=== PATIENT | male | born 1990 ===

== ENCOUNTER 2018-11-26 20:17 | Emergency (ER) | payer OTHER ==
--- NOTE | 2018-11-26 20:37 | ER Report ---
History and Physical Time Seen By MD: 20:37 Hx. of Stated Complaint: worst headache ever HPI/ROS CHIEF COMPLAINT: Severe headache HISTORY OF PRESENT ILLNESS: This is a 19-year-old male. Yesterday, Thursday morning, at about 0300 hours he had onset suddenly of a severe headache, worst headache he's ever had. He does not typically get headaches. He took some Aleve. He had a normal day had a beer while watching a movie that night and then decided to go to sleep to see if this would help. He woke up with a headache. He also found that he was not able to walk straight having severe disequilibrium. He denies any vertigo. No recent illnesses. He denies having any shortness of breath, cough, sore throat or runny nose. He has had nausea and vomiting all day today unable to keep any fluids down so feels dehydrated. Family decided that he should come in to get things checked out. He denies any vision changes other than the photophobia due to light. He denies any chest pain or palpitations. No abdominal pain. No recent changes in bowel or bladder function other than a little dehydrated. Denies any diffuse joint sore muscle pains. No rashes. No difficulty with speech or swallowing noted. The patient denies any drug use. He did have one beer last night but no further alcohol use since then. Allergies: Coded Allergies: No Known Allergies (Verified Allergy, Unknown, 11/26/18) Home Meds No Active Prescriptions or Reported Meds Reviewed Nurses Notes: Yes Hx Substance Use Disorder: No Hx Alcohol Use: No Constitutional Vital Sign - Last 24 Hours 11/26/18 11/26/18 11/26/18 11/26/18 20:17 20:25 20:30 20:31 Temp 97.5 Pulse 51 53 Resp 14 12 B/P (MAP) 122/81 (95) 118/92 (101) 118/92 Pulse Ox 97 94 O2 Delivery Room Air 11/26/18 11/26/18 11/26/18 11/26/18 20:47 21:00 21:17 21:22 Pulse 53 52 60 Resp 16 23 25 B/P (MAP) 95/41 (59) Pulse Ox 97 95 97 11/26/18 11/26/18 11/26/18 11/26/18 21:30 21:35 21:50 22:01 Pulse 56 53 Resp 15 31 B/P (MAP) 108/70 (83) 103/69 (80) Pulse Ox 97 96 11/26/18 11/26/18 11/26/18 11/26/18 22:05 22:20 22:30 22:35 Pulse 53 ? Resp 12 B/P (MAP) ???/??? (1665) Pulse Ox 93 11/26/18 11/26/18 11/26/18 11/26/18 22:50 23:00 23:05 23:20 Pulse ??? 73 51 Resp 9 27 B/P (MAP) ???/??? (1665) Pulse Ox 95 93 11/26/18 11/26/18 11/26/18 11/26/18 23:25 23:30 23:40 23:55 Pulse 51 58 66 Resp 18 B/P (MAP) ???/??? (1665) Pulse Ox 97 94 96 11/27/18 11/27/18 11/27/18 11/27/18 00:00 00:10 00:19 00:25 Pulse ? B/P (MAP) ???/??? (1665) 121/77 (92) Pulse Ox 95 99 11/27/18 11/27/18 11/27/18 11/27/18 00:30 00:40 00:55 01:00 Pulse 55 59 Resp 54 B/P (MAP) 120/83 (95) 119/81 (94) Pulse Ox 98 97 11/27/18 01:10 Pulse 58 Pulse Ox 97 Physical Exam General Appearance: The patient is alert. No acute distress. Eyes: Pupils are equal, round. Reactive to light. No pallor, injection or icterus. Extraocular movements are intact. No nystagmus. Negative head impulse testing. ENT: Mucous membranes are moist. Normal oral mucosa. Posterior oropharynx is normal. No pain with palpating around the skull in the facial bones or mastoids or scientology area. Neck: Supple and non tender. Respiratory: Lungs are clear to auscultation. Cardiovascular: Regular rate and rhythm. No murmurs, gallops or rubs. Normal capillary refill. Gastrointestinal: Abdomen is soft and non tender. Nondistended. Normal active bowel sounds. Neurological: Alert and oriented x3. Cranial nerve exam with eye exam as noted above. Normal facial sensation without facial droop. Midline tongue, symmetric palate elevation. Normal shoulder shrug. Normal strength in the extremities both upper and lower with normal sensation. Normal heel to grant and finger to nose testing. Headache worsens with change in position. Also severe inability to stand or walk straight. Negative Kernig's and Brudzinski's signs. [place] does reproduce a little bit of the dizzy sensation to the left side but there is no nystagmus and not classic. Skin: Warm and dry. No rashes. Musculoskeletal: Extremities are nontender. Full range of motion. No tenderness in palpation of the neck, back and spine. DIFFERENTIAL DIAGNOSIS: After history and physical exam, differential diagnosis was considered for a patient with severe onset of headache who also is having some disequilibrium. No history of headaches so migraine headache or atypical version would be unlikely. Would most likely think this would be a viral syndrome but absence of other symptoms are suspicious. Would be less likely to be a stroke but need to rule this out. Would also consider other neurodegenerative problems. Medical Decision Making Data Points Result Diagram: 11/26/18211011/26/182110 Laboratory Hematology Test 11/26/18 21:11 11/26/18 21:12 Red Blood Count 5.48 M/uL (4.00-5.60) Mean Corpuscular Volume 89.2 fL (80.0-96.0) Mean Corpuscular Hemoglobin 29.8 pg (26.0-33.0) Mean Corpuscular Hemoglobin Concent 33.4 g/dL (32.0-36.0) Red Cell Distribution Width 13.3 % (11.5-14.5) Mean Platelet Volume 9.2 fL (7.2-11.1) Neutrophils (%) (Auto) 79.7 % (39.4-72.5) Lymphocytes (%) (Auto) 12.8 % (17.6-49.6) Monocytes (%) (Auto) 6.5 % (4.1-12.4) Eosinophils (%) (Auto) 0.3 % (0.4-6.7) Basophils (%) (Auto) 0.7 % (0.3-1.4) Nucleated RBC Relative Count (auto) 0.1 /100WBC Neutrophils # (Auto) 8.8 K/uL (2.0-7.4) Lymphocytes # (Auto) 1.4 K/uL (1.3-3.6) Monocytes # (Auto) 0.7 K/uL (0.3-1.0) Eosinophils # (Auto) 0.0 K/uL (0.0-0.5) Basophils # (Auto) 0.1 K/uL (0.0-0.1) Nucleated RBC Absolute Count (auto) 0.01 K/uL Prothrombin Time 13.2 seconds (12.0-14.4) Prothromb Time International Ratio 1.00 Activated Partial Thromboplast Time 24 seconds (23-35) Sodium Level 139 mmol/L (137-145) Potassium Level 4.0 mmol/L (3.5-5.0) Chloride Level 104 mmol/L (98-107) Carbon Dioxide Level 24 mmol/L (22-30) Blood Urea Nitrogen 9 mg/dl (9-21) Creatinine 1.00 mg/dl (0.66-1.25) Glomerular Filtration Rate Calc > 60.0 Random Glucose 102 mg/dl (75-110) Calcium Level 10.3 mg/dl (8.4-10.2) Total Bilirubin 0.7 mg/dl (0.2-1.3) Aspartate Amino Transf (AST/SGOT) 21 U/L (0-35) Alanine Aminotransferase (ALT/SGPT) 30 U/L (0-56) Alkaline Phosphatase 83 U/L (0-126) Total Protein 7.1 g/dl (6.3-8.2) Albumin 4.6 g/dl (3.5-5.0) Influenza Virus Type A (PCR) Negative (NEGATIVE) Influenza Virus Type B (PCR) Negative (NEGATIVE) Chemistry Test 11/26/18 21:11 11/26/18 21:12 White Blood Count 11.1 k/uL (4.5-11.0) Red Blood Count 5.48 M/uL (4.00-5.60) Hemoglobin 16.3 g/dL (14.0-18.0) Hematocrit 48.9 % (42.0-52.0) Mean Corpuscular Volume 89.2 fL (80.0-96.0) Mean Corpuscular Hemoglobin 29.8 pg (26.0-33.0) Mean Corpuscular Hemoglobin Concent 33.4 g/dL (32.0-36.0) Red Cell Distribution Width 13.3 % (11.5-14.5) Platelet Count 196 K/uL (150-450) Mean Platelet Volume 9.2 fL (7.2-11.1) Neutrophils (%) (Auto) 79.7 % (39.4-72.5) Lymphocytes (%) (Auto) 12.8 % (17.6-49.6) Monocytes (%) (Auto) 6.5 % (4.1-12.4) Eosinophils (%) (Auto) 0.3 % (0.4-6.7) Basophils (%) (Auto) 0.7 % (0.3-1.4) Nucleated RBC Relative Count (auto) 0.1 /100WBC Neutrophils # (Auto) 8.8 K/uL (2.0-7.4) Lymphocytes # (Auto) 1.4 K/uL (1.3-3.6) Monocytes # (Auto) 0.7 K/uL (0.3-1.0) Eosinophils # (Auto) 0.0 K/uL (0.0-0.5) Basophils # (Auto) 0.1 K/uL (0.0-0.1) Nucleated RBC Absolute Count (auto) 0.01 K/uL Prothrombin Time 13.2 seconds (12.0-14.4) Prothromb Time International Ratio 1.00 Activated Partial Thromboplast Time 24 seconds (23-35) Glomerular Filtration Rate Calc > 60.0 Calcium Level 10.3 mg/dl (8.4-10.2) Total Bilirubin 0.7 mg/dl (0.2-1.3) Aspartate Amino Transf (AST/SGOT) 21 U/L (0-35) Alanine Aminotransferase (ALT/SGPT) 30 U/L (0-56) Alkaline Phosphatase 83 U/L (0-126) Total Protein 7.1 g/dl (6.3-8.2) Albumin 4.6 g/dl (3.5-5.0) Influenza Virus Type A (PCR) Negative (NEGATIVE) Influenza Virus Type B (PCR) Negative (NEGATIVE) Coagulation Test 11/26/18 21:11 Prothrombin Time 13.2 seconds Prothromb Time International Ratio 1.00 Activated Partial Thromboplast Time 24 seconds EKG/Imaging EKG Interpretation 12 lead EKG: Rhythm: Sinus bradycardia, rate 50 [place]: normal QRS: normal ST segments: normal Imaging EXAMINATION: MRI brain without IV contrast MRI brain with IV contrast HISTORY: Dizziness, headache. COMPARISON: None. TECHNIQUE: Multi-planar, multi-sequence brain MRI was performed before and af ter IV gadolinium. CONTRAST: 15 mL of IV MultiHance gadolinium. FINDINGS: Brain volume: Normal. Sagittal midline structures: Normal. Ventricles: Normal. Acute ischemic changes: There is patchy diffusion restriction with corresponding decreased ADC map signal and T2/FLAIR hyperintensity in the left inferior cerebellum. There are a few areas of T2 shine through in the deep white matter of the left frontal and parietal lobe. Hemorrhage: No acute hemorrhage or hemosiderin staining. Masses/edema: None. Enhancement: There is no abnormal intracranial enhancement. [place]-white: Negative. White matter: There are several T2/FLAIR hyperintense lesions in the deep white matter bilaterally, oriented perpendicular to the lateral ventricular surface. The callososeptal interface is mildly irregular in appearance. Vessels: There is mildly increased T2 signal in the left vertebral artery. Extra-axial: None. Calvarium/scalp: Negative. Skull base: Negative. Visualized sinuses/orbits: Negative. Visualized upper neck: Negative. IMPRESSION: 1. Acute, patchy infarct in the left cerebellum, over 6 hours in age. No associated hemorrhage or mass effect. 2. Abnormal signal in the left vertebral artery could be due to slow flow or occlusion, and may indicate a dissection lower in the neck. MRA or CTA of the neck could be considered for further evaluation. 3. Several nonenhancing white matter lesions with morphology and distribution highly suspicious for multiple sclerosis plaques. Other inflammatory process or sequela of vasculitis is considered less likely. 4. No intracranial mass lesion. These findings were discussed with VU NINO at 11/26/2018 11:31 PM. Report Dictated By: Chana Hamilton MD at 11/26/2018 11:23 PM ED Course/Re-evaluation Clinical Indication for ER IV: Hydration, IV Access ED Course After initial blood work, the patient went to MRI. He had a liter of fluid and some Zofran for nausea. MRI was with and without contrast and did show signs of multiple white matter lesions consistent with likely neurodegenerative disease, these were nonenhancing. Cerebellum infarct estimated greater than 6 hours old. Question of problem with the left vertebral artery as well, recommendation for further imaging of the vascular structures. I called and spoke with neurology, Dr. Romo, at [facility]. After this talked with Dr. Mack, the hospitalist who accepted the patient for transfer. Decision to Disposition Date: Nov 27, 2018 Decision to Disposition Time: 00:04 Transfer Facility Patient was transferred to [facility] via ambulance. The transfer was non-emergent, and was required because the capabilities of the receiving hospital. Consent for transfer was obtained from the patient. See EMTALA for transfer orders. Depart Departure Latest Vital Signs Vital Signs Date Time Temp Pulse Resp B/P (MAP) Pulse Ox O2 Delivery O2 Flow Rate FiO2 11/27/18 01:10 58 97 11/27/18 01:00 119/81 (94) 11/27/18 00:40 54 11/26/18 20:31 97.5 Room Air Impression: Primary Impression: Cerebellar stroke, acute Condition: Condition Unchanged Disposition: XFER TO [facility] New Scripts No Active Prescriptions or Reported Meds VU NINO MD Nov 26, 2018 20:37
--- NOTE | 2018-11-26 21:06 | EKG ---
FACILITY: [facility] PATIENT NAME: DAVID ESPINOZA : [id number] MR: [id number] V: [id number] EXAM DATE: ORDERING PHYSICIAN: VU NINO TECHNOLOGIST: TRAV Test Reason : NEURO/ dizziness Blood Pressure : / mmHG Vent. Rate : 050 BPM Atrial Rate : 050 BPM P-R Int : 166 ms QRS Dur : 104 ms QT Int : 428 ms P-R-T Axes : 084 084 066 degrees QTc Int : 390 ms Sinus bradycardia with sinus arrhythmia Poor R wave progression anteriorly Nonspecific interventricular conduction delay Possible delta wave seen in II, III, AVF No previous ECGs available Confirmed by JIN LILLY ([id number]) on 11/26/2018 9:15:28 PM Referred By: Confirmed By:JIN LILLY
[2018-11-26 21:25] LABS: PLATELET COUNT, AUTOMATED 196 K/uL (150-450)
[2018-11-26] MEDS ORDERED: NS(*) 0.9% 1000 ML BAG 1,000 ML IV ONE (21:55)
[2018-11-26] MEDS ORDERED: ONDANSETRON 4 MG/2 ML VIAL IVP ONE (21:55)
[2018-11-26] MEDS ORDERED: GADOBENATE 529MG/1ML 15ML VIAL IVP ONE (22:16)
[2018-11-26] MEDS ORDERED: MORPHINE 4 MG/ML SDV IVP ONE (23:30)
--- NOTE | 2018-11-26 23:39 | RADIOLOGY IMAGING REPORT ---
[place] [facility] [place] NAME: Aditi Ham : 1990 MR: [id number] V: [id number] EXAM DATE: ORDERING PHYSICIAN: VU NINO TECHNOLOGIST: [place] [facility] [place] : 1990 Visit/Account:[id number] Date of Sevice: 11/26/2018 EXAMINATION: MRI brain without IV contrast MRI brain with IV contrast HISTORY: Dizziness, headache. COMPARISON: None. TECHNIQUE: Multi-planar, multi-sequence brain MRI was performed before and after IV gadolinium. CONTRAST: 15 mL of IV MultiHance gadolinium. FINDINGS: Brain volume: Normal. Sagittal midline structures: Normal. Ventricles: Normal. Acute ischemic changes: There is patchy diffusion restriction with corresponding decreased ADC map s ignal and T2/FLAIR hyperintensity in the left inferior cerebellum. There are a few areas of T2 shine through in the deep white matter of the left frontal and parietal lobe. Hemorrhage: No acute hemorrhage or hemosiderin staining. Masses/edema: None. Enhancement: There is no abnormal intracranial enhancement. [place]-white: Negative. White matter: There are several T2/FLAIR hyperintense lesions in the deep white matter bilaterally, oriented perpendicular to the lateral ventricular surface. The callososeptal interface is mildly irre gular in appearance. Vessels: There is mildly increased T2 signal in the left vertebral artery. Extra-axial: None. Calvarium/scalp: Negative. Skull base: Negative. Visualized sinuses/orbits: Negative. Visualized upper neck: Negative. IMPRESSION: 1. Acute, patchy infarct in the left cerebellum, over 6 hours in age. No associated hemorrhage or mas s effect. 2. Abnormal signal in the left vertebral artery could be due to slow flow or occlusion, and may indic ate a dissection lower in the neck. MRA or CTA of the neck could be considered for further evaluation . 3. Several nonenhancing white matter lesions with morphology and distribution highly suspicious for m ultiple sclerosis plaques. Other inflammatory process or sequela of vasculitis is considered less lik ivory. 4. No intracranial mass lesion. These findings were discussed with VU NINO at 11/26/2018 11:31 PM. Report Dictated By: Chana Hamilton MD at 11/26/2018 11:23 PM Report E-Signed By: Chana Hamilton MD at 11/26/2018 11:35 PM [id number]
[2018-11-27 01:00] VITALS: BP 119/81
== END 2018-11-27 01:23 | disposition short-term general hospital (02) ==
LOC: ER 20:41
DX: G46.4 Cerebellar stroke syndrome (principal)
CPT/HCPCS: 70553; 85025; 85610; 85730; 87502; 93005; 96361; 96374; 96375; 99285; A9577; J2270; J2405; J7030; 82040; 82247; 82310; 82374; 82435; 82565; 82947; 84075; 84132; 84155; 84295; 84450; 84460; 84520

== ENCOUNTER → 2018-11-27 | Outpatient (CLI) | payer OTHER | LOC: AMB 01:07 | PROVIDERS: ATTEND Nurse Practitioner | DX: I67.82 Cerebral ischemia (principal) | CPT/HCPCS: A0425; A0428 ==